=== PATIENT | female | born 1935 | race Caucasian/White ===

== ENCOUNTER 2016-10-31 07:03 | Day surgery (SDC) | payer MEDICARE, OTHER ==
[~2016-10-31] VITALS: Ht 167.6 cm; Wt 97.1 kg
--- NOTE | ~2016-10-31 | OR ---
PATIENT'S NAME: VANESSA TREVINO [facility] AGE: 81 Y [address] ROOM: [place] [address] LOCATION: GPCU ADMIT DATE: 10/31/2016 OR/Procedure Report DISCHARGE DATE: 11/01/2016 FAMILY PHYSICIAN: Gary Nava MD ATTENDING PHYSICIAN: Rush Guillory SURGEON: Rush Guillory MD MARKETING LIAISON: DATE OF PROCEDURE: 10/31/2016 PROCEDURE: Single chamber pacemaker implantation INDICATION: Sick sinus rhythm with prolonged pauses PROCEDURE/FINDINGS: Ms. Trevino was brought to the cardiac geophysical laboratory chief in the fasting state and prepped and draped in the normal manner. Versed and fentanyl were given for conscious sedation. Following this 1% lidocaine was used for local skin infiltration of the left infraclavicular region. Next an 18 gauge [employer] needle was advanced into the left subclavian vein through which an 0.025 wire was placed. Needle was removed. Proximal end of the wire was attached to the surgical gown with a hemostat. Attention was then turned towards creation of the pacemaker pocket where additional 1% lidocaine was given. Next, a #11 blade was used for primary skin incision. Using Bovie cautery as well as blunt dissection pectoralis fascia was identified. This was entered into and dissected both cephalad as well as caudally. Previously placed 0.025 wires were brought into the pacemaker pocket. 7F sheath was placed onto this wire. Wire and dilator were removed. Using fluoroscopic guidance, the right ventricular lead was placed. This is a [employer], INGEVITY lead, model #7741 serial #[id number]. Thresholds were obtained showing an intrinsic R-wave of 5.5 mV, threshold 0.3 volts at 0.4 milliseconds pulse width, impedance of 758 ohms. The lead was then connected to the pacemaker generator which is a [employer] ESSENTIO, model # L110, serial #[id number]. The generator with the connected lead was placed into the pacemaker pocket. Overlying subcutaneous tissue was closed with 2-0 Vicryl in a running fashion. Following this the subcuticular layer was closed with 4.0 Vicryl also in running fashion. Steri-Strips were applied as well as pressure dressing and Tegaderm dressing. Patient was placed into a shoulder immobilizer in the lab. CONCLUSION: 1. Single chamber pacemaker implantation for sick sinus syndrome. 2. The patient is instructed to use the shoulder immobilizer for one week and not to lift her arm above her head. 3. Patient will be instructed on the use of the home remote monitoring Delectable system. PATIENT'S NAME: VANESSA TREVINO [facility] AGE: 81 Y [address] ROOM: [place] [address] [facility] ADMIT DATE: 10/31/2016 OR/Procedure Report DISCHARGE DATE: 11/01/2016 FAMILY PHYSICIAN: Gary Nava MD ATTENDING PHYSICIAN: Rush Guillory 4. The patient will follow up with me in the outpatient clinic in two weeks. 5. RUSH GUILLORY MD DJM/gb /[id number] CC: Printer CARDIOPULMINARY d: 11/06/16 1233 t: 12/01/16 0911, OPERATIVE SUMMARY
[~2016-10-31 07:03] MED LIST: ADVIL200 MG PO; COZAAR50 MG PO; CPAP; HYDRODIURIL25 MG PO; LEVOTHROID (S112 MCG PO; LOPRESSOR25 MG PO; PRESERVISION A1 EAC1 PO; TIMOPTIC XE 0.5%5 ML OPHTH; TYLENOL EXTRA500 MG PO; XALATAN2.5 ML OPHTH; XARELTO20 MG PO; ZOLOFT50 MG PO
[2016-11-01] MEDS ORDERED: NORCO 5-325 TA1 EACH PO (08:00)
== END 2016-11-01 11:30 | disposition disaster alternative care site (69) ==
LOC: GPCU 07:03 → GSDC 07:03 → GCAT 10:00 → GPCU 11:22 → GSDC 11-01 11:30
PROC: 02HK3JZ Insertion of Pacemaker Lead into Right Ventricle, Percutaneous Approach (ICD-10-PCS; principal; 2016-10-31)
PROC: 0JH604Z Insertion of Pacemaker, Single Chamber into Chest Subcutaneous Tissue and Fascia, Open Approach (ICD-10-PCS; principal; 2016-10-31)
DX: I49.5 Sick sinus syndrome (principal); I48.91 Unspecified atrial fibrillation; I10 Essential (primary) hypertension; E78.5 Hyperlipidemia, unspecified; E03.9 Hypothyroidism, unspecified; G47.33 Obstructive sleep apnea (adult) (pediatric); M54.5 Low back pain; R06.02 Shortness of breath; M19.90 Unspecified osteoarthritis, unspecified site; Z79.01 Long term (current) use of anticoagulants; Z79.1 Long term (current) use of non-steroidal anti-inflammatories (NSAID); Z79.899 Other long term (current) drug therapy
CPT/HCPCS: C1786; C1898; J0690; J2250; J3010; J7030